=== PATIENT | female | born 1975 | race Caucasian/White ===

== ENCOUNTER 2018-02-19 19:44 | Emergency (ER) | payer OTHER ==
--- NOTE | 2018-02-19 20:07 | PDOC ---
Rapid Medical Evaluation Chief Complaint: Nausea/Vomiting Time Seen by Provider: 02/19/18 20:00 Medical Evaluation: Allergies Allergy/AdvReac Type Severity Reaction Status Date / Time No Known Allergies Allergy Verified 02/08/16 15:04 02/19/18 20:06 I have performed a brief in-person evaluation of this patient. The patient presents with a chief complaint of: N/V x 4 last PM, but cramping persists. No bleeding/ coffe grounds/ No diarhea/ no dysuia/ no vag drainage Pertinent physical exam findings: abd soft, no rebound or guarding. AMB . I have ordered the following: Ua/ UCG The patient will proceed to the ED for further evaluation.
[2018-02-19 20:08] VITALS: BP 118/76; PULSE 85; TEMP 98.5; BMI 28.3
[2018-02-19 20:47] LABS: URINE APPEARANCE CLEAR; URINE BILIRUBIN NEGATIVE (<2.0 mg/dL); URINE COLOR YELLOW; URINE GLUCOSE (UA) NEGATIVE (NEGATIVE); URINE KETONE NEGATIVE (NEGATIVE); URINE LEUK ESTERASE NEGATIVE (NEGATIVE); URINE NITRITE NEGATIVE (NEGATIVE); URINE PROTEIN NEGATIVE (NEGATIVE); URINE UROBILINOGEN NEGATIVE mg/dL (0.2-1.0)
[2018-02-19 20:50] LABS: EPI CELLS RARE /HPF (FEW); URINE MUCUS FEW
[2018-02-19] MEDS ORDERED: ONDANSETRON *ODT* 4 MG TABLET ONE (20:51)
--- NOTE | 2018-02-19 20:59 | PDOC ---
History of Present Illness - General Chief Complaint: Nausea/Vomiting Stated Complaint: STOMACH PAIN Time Seen by Provider: 02/19/18 20:00 - History of Present Illness Initial Comments: 02/19/18 20:55 42-year-old female with 4 episodes of vomiting last night after a meal now complains of burning. She points to her epigastric area as the area of her discomfort. She has mild associated nausea Past History - Past Medical History Allergies/Adverse Reactions: Allergies Allergy/AdvReac Type Severity Reaction Status Date / Time No Known Allergies Allergy Verified 02/08/16 15:04 Home Medications: Ambulatory Orders Famotidine [Pepcid] 20 mg PO DAILY #10 tablet 02/19/18 Asthma: No Cancer: No Cardiac Disorders: No Diabetes: No HTN: No Seizures: No Thyroid Disease: No - Suicide/Smoking/Psychosocial Hx Smoking History: Never smoked Have you smoked in the past 12 months: No Information on smoking cessation initiated: No Hx Alcohol Use: No Drug/Substance Use Hx: No Hx Substance Use Treatment: No Review of Systems - Review of Systems Constitutional: No: Fever ABD/GI: Yes: Nausea, Vomiting, Indigestion. No: Poor Appetite, Poor Fluid Intake, Rectal Bleeding Musculoskeletal: No: Back Pain *Physical Exam - Vital Signs Last Vital Signs Temp Pulse Resp BP Pulse Ox 98.5 F 85 20 118/76 100 02/19/18 20:04 02/19/18 20:04 02/19/18 20:04 02/19/18 20:04 02/19/18 20:04 - Physical Exam Comments: 02/19/18 20:57 HEAD: NC/AT EYES: Conjuntiva clear Ears: Canals and TM's normal NOSE: No d/c THROAT: Moist mucous membrances, oral pharanx clear, uvula midline NECK: Supple without adenopathy CARDIAC: S1 S2 LUNGS: CTA Full and Equal breath sounds ABDOMEN: Soft NT ND no CVAT MS: Full ROM in all joints without edema NEUROLOGIC: No gross sensory or motor deficits, NVID SKIN: Normal color and temperature no lesions or rashes ED Treatment Course - ADDITIONAL ORDERS Additional order review: Laboratory Results 02/19/18 02/19/18 20:16 20:16 Urine Color Yellow Urine Appearance Clear Urine pH 6.0 Ur Specific [place] 1.023 Urine Protein Negative Urine Glucose (UA) Negative Urine Ketones Negative Urine Blood 2+ H Urine Nitrite Negative Urine Bilirubin Negative Urine Urobilinogen Negative Ur Leukocyte Esterase Negative Urine WBC (Auto) 1 Urine RBC (Auto) 32 Ur Epithelial Cells Rare Urine Mucus Few Urine HCG, Qual Negative *DC/Admit/Observation/Transfer Diagnosis at time of Disposition: GERD (gastroesophageal reflux disease) - Discharge Dispostion Disposition: HOME Condition at time of disposition: Stable Decision to Admit order: No - Prescriptions Prescriptions: Famotidine [Pepcid] 20 mg PO DAILY #10 tablet - Referrals Referrals: Parker Lundberg MD [Staff Physician] - - Patient Instructions Printed Discharge Instructions: Heartburn -- Overview, GERD Diet, DI for Gastroesophageal Reflux Disease (GERD) Additional Instructions: Please take the medication as directed return to the emergency room should symptoms worsen or go unresolved follow-up with gastroenterology within the next 1-2 days for further evaluation and treatment options - Post Discharge Activity
[2018-02-19] MEDS ORDERED: ONDANSETRON *ODT* 4 MG TABLET SL ONE (21:26)
== END 2018-02-19 21:30 | disposition home or self-care (01) ==
LOC: JERFT 19:44
DX: K21.9 Gastro-esophageal reflux disease without esophagitis (principal)
CPT/HCPCS: 81003; 81015; 84703; 99281-25; Q0162

== ENCOUNTER 2022-11-26 13:33 | Emergency (ER) | payer OTHER ==
[2022-11-26 13:39] VITALS: BP 115/75; PULSE 79; RESP 19; TEMP 97.9; BMI 26.5
== END 2022-11-26 14:39 | disposition left against medical advice (07) ==
LOC: JER 13:33 → JERFT 13:33 → JER 14:39
DX: M25.531 Pain in right wrist (principal)
CPT/HCPCS: 99281-25

== ENCOUNTER 2022-11-26 15:03 | Emergency (ER) | payer OTHER ==
[2022-11-26 15:07] VITALS: BP 118/78; PULSE 72; RESP 19; TEMP 98.3; BMI 26.5
== END 2022-11-26 16:57 | disposition left against medical advice (07) ==
LOC: JER 15:03 → JERFT 15:03 → JER 16:57
DX: M25.531 Pain in right wrist (principal)
CPT/HCPCS: 99281-25